=== PATIENT | female | born 1975 | race Two or more races ===

== ENCOUNTER 2016-03-08 10:57 | Emergency (ER) | payer OTHER ==
--- NOTE | 2016-03-08 12:00 | RAD ---
Exam: Two-view chest COMPARISON: 12/27/2015 and 05/27/2014 INDICATION: Cough for one week. FINDINGS: PA and lateral views of the chest were obtained. Cardiac silhouette is within normal limits and stable. Lungs are well-inflated. There is no focal airspace disease or pleural effusion. Bones of the chest wall within normal limits. IMPRESSION: Negative two-view chest.
== END 2016-03-08 13:13 | disposition home or self-care (01) ==
LOC: ED 10:57
DX: J11.1 Influenza due to unidentified influenza virus with other respiratory manifestations (principal); R05 Cough

== ENCOUNTER 2016-03-19 05:18 | Emergency (ER) | payer OTHER ==
[2016-03-19] MEDS ORDERED: OXYMETAZOLINE HCL 0.05% 30 SPRAYS/BOT NS ONE (05:43)
[2016-03-19] MEDS ORDERED: PREDNISONE 20 MG TABLET ONE (05:43)
--- NOTE | 2016-03-19 08:04 | RAD ---
CHEST 2 VIEWS HISTORY: Cough and headache. Frontal and lateral chest radiographs dated 03/19/2016. COMPARISON: 03/08/2016. FINDINGS: FOCAL AIRSPACE OPACITY: No gross airspace consolidation. PLEURAL EFFUSION: None. CARDIOMEDIASTINAL SILHOUETTE: Nonenlarged. PNEUMOTHORAX: None identified. OSSEOUS STRUCTURES: Minimal thoracic disc degeneration. IMPRESSION: No acute cardiopulmonary process noted.
== END 2016-03-19 06:23 | disposition home or self-care (01) ==
LOC: ED 05:18
DX: J06.9 Acute upper respiratory infection, unspecified (principal); R68.89 Other general symptoms and signs; I10 Essential (primary) hypertension; E03.9 Hypothyroidism, unspecified
CPT/HCPCS: 71020; 99283 ×2; A9270; J7512

== ENCOUNTER 2016-03-28 11:11 | Emergency (ER) | payer OTHER ==
--- NOTE | 2016-03-28 12:42 | RAD ---
History: Cough for one month with history of TB. Comparison: 03/19/2016. Technique: 2 views Findings: The soft tissue and bony structures are unremarkable. The heart size is appropriate. No infiltrate, effusion or pneumothorax is observed. The hilar and mediastinal structures are normal. Impression: 1. No active intra-thoracic disease.
== END 2016-03-28 13:34 | disposition home or self-care (01) ==
LOC: ED 11:11
DX: R05 Cough (principal); I10 Essential (primary) hypertension; R76.11 Nonspecific reaction to tuberculin skin test without active tuberculosis